=== PATIENT | male | born 1950 | race Caucasian/White ===

== ENCOUNTER 2019-11-21 07:28 | Emergency (ER) | payer OTHER ==
[~2019-11-21] VITALS: Ht 170.2 cm; Wt 81.7 kg
[~2019-11-21 07:28] MED LIST: ALLEGRA ALLERGY60 MG PO; OMEPRAZOLE20 MG PO
[2019-11-21] MEDS ORDERED: POTASSIUM CHLO10 MEQ PO (08:54)
[2019-11-21] MEDS ORDERED: PREDNISONE20 MG PO (08:54)
== END 2019-11-21 10:35 | disposition home or self-care (01) ==
LOC: ED 07:28
DX: T88.6XXA Anaphylactic reaction due to adverse effect of correct drug or medicament properly administered, initial encounter (principal); T47.1X5A Adverse effect of other antacids and anti-gastric-secretion drugs, initial encounter; T47.6X5A Adverse effect of antidiarrheal drugs, initial encounter; R19.7 Diarrhea, unspecified; E87.6 Hypokalemia; Z88.0 Allergy status to penicillin
CPT/HCPCS: 80053; 83690; 85025; 96361; 96374; 96375; 99284-25; J1200; J2930; J3480; J7040; Q0163

== ENCOUNTER 2022-04-18 13:51 | Emergency (ER) | payer OTHER ==
[~2022-04-18] VITALS: Ht 170.2 cm; Wt 86.2 kg
[~2022-04-18 13:51] MED LIST changes: +LOMOTIL TABLET1 EACH PO; +POTASSIUM CHLO10 MEQ PO; +PREDNISONE20 MG PO
[2022-04-18] MEDS ORDERED: METHYLPREDNISOLO4 M1 PO (16:31)
[2022-04-18] MEDS ORDERED: BENADRYL25 MG PO (16:31)
[2022-04-18] MEDS ORDERED: PEPCID20 MG PO (16:31)
== END 2022-04-18 16:41 | disposition home or self-care (01) ==
LOC: ED 13:51
DX: L50.0 Allergic urticaria (principal); T47.6X5A Adverse effect of antidiarrheal drugs, initial encounter; R19.7 Diarrhea, unspecified; J45.909 Unspecified asthma, uncomplicated; K21.9 Gastro-esophageal reflux disease without esophagitis; Z88.0 Allergy status to penicillin; Z88.8 Allergy status to other drugs, medicaments and biological substances
CPT/HCPCS: 36415; 80053; 85025; 96361; 96374; 96375; 99284-25; A9270; J2930; J7121

== ENCOUNTER 2024-08-04 14:28 | Observation (INO) | payer OTHER ==
[~2024-08-04] VITALS: Ht 170.2 cm; Wt 100.1 kg
[~2024-08-04 14:28] MED LIST changes: +BENADRYL25 MG PO; +LISINOPRIL20 MG PO; +METHYLPREDNISOLO4 M1 PO; +PEPCID20 MG PO; +SEVOFLURANE 250 ML BTL INH ONE; +TUMS300 MG PO
[2024-08-04] MEDS ORDERED: ondansetron HCL 4 MG/2 ML VIAL IV ONE (15:00)
[2024-08-04] MEDS ORDERED: NITROGLYCERIN 0.4 MG SUBL SL ONE (15:00)
[2024-08-04] MEDS ORDERED: GLUCAGON,HUMAN RECOMBINANT 1 MG/ML VIAL IV ONE (15:00)
[2024-08-04 15:38] LABS: BASOPHILS 0.7 % (0.2-1.2); EOSINOPHILS 5.4 % (0.8-7.0); HEMATOCRIT 38.8 % (40.1-51.0); HEMOGLOBIN 13.2 g/dL (13.7-17.5); LYMPHOCYTES 48.4 % (21.8-53.1); MCH 31.1 PG (25.7-32.2); MCV 91.5 fL (79.0-92.2); MONOCYTES 6.1 % (5.3-12.2); NEUTROPHILS 38.9 % (34.0-67.9); PLATELET COUNT 187 K/uL (163-337); RBC 4.24 M/uL (4.63-6.08)
[2024-08-04] MEDS ORDERED: SODIUM CHLORIDE 0.9% 1,000 ML IV PRN (15:45)
[2024-08-04 15:48] LABS: ALBUMIN 3.9 g/dL (3.4-5.0); ALBUMIN/GLOBULIN RATIO 1.11 (1.1-2.4); ANION GAP 11.5 (7-21); BILIRUBIN, TOTAL 0.7 mg/dL (0.2-1.0); BUN/CREATININE RATIO 8.2 (6.0-28.6); CALCIUM 9.5 mg/dL (8.5-10.1); CREATININE, SERUM 1.34 mg/dL (0.70-1.30); POTASSIUM 3.5 mmol/L (3.5-5.1); PROTEIN, TOTAL 7.4 g/dL (6.4-8.2)
[2024-08-04] MEDS ORDERED: SUCCINYLCHOLINE IN 0.9% NACL 200 MG/10 ML SYRINGE ONE (18:52)
[2024-08-04] MEDS ORDERED: ROCURONIUM BROMIDE 50 MG/5 ML SYR ONE (18:52)
[2024-08-04] MEDS ORDERED: LIDOCAINE HCL 2% 5 ML SDV ONE (18:52)
[2024-08-04] MEDS ORDERED: propofoL 200 MG/20 ML VIAL ONE (18:52)
[2024-08-04] MEDS ORDERED: SUGAMMADEX SODIUM 200 MG/2 ML ML ONE (19:36)
--- NOTE | 2024-08-04 19:48 | NUR ---
08/04/241947 Deann Garza 1940-PATIENT ARRIVED TO PACU ON 6L MASK NONAROUSABLE ORAL AIRWAY IN PLACE. SR. IVF INFUSING. HOB ELEVATED. PATIENT HAD ELEVATED BP PREOP AND REPORTED TO V BELT COVERER THAT HE WAS GONNA CALL PCP FOR NEW SCRIPT 1941-PATIENT AROUSING RAISING RIGHT HAND TO MOUTH ORAL AIRWAY REMOVED. ORIENTED TO PACU. 6L MASK RR EVEN 1946-PATIENT TALKING EYES CLOSED. RA 97% RR EVEN. DR. LORENZO AT BEDSIDE TALKING TO PATIENT.
[2024-08-04] MEDS ORDERED: PROTONIX40 MG PO (19:59)
[2024-08-04] MEDS ORDERED: CARAFATE1 GM PO (19:59)
[2024-08-04] MEDS ORDERED: NALOXONE HCL 0.4 MG SYR IV PRN (20:00)
[2024-08-04] MEDS ORDERED: ondansetron HCL 4 MG/2 ML VIAL IV PRN (20:00)
[2024-08-04] MEDS ORDERED: LACTATED RINGER'S 1,000 ML IV SCH (20:00)
[2024-08-04] MEDS ORDERED: PANTOPRAZOLE SODIUM 40 MG TABEC PO SCH (20:00)
--- NOTE | 2024-08-04 20:10 | NUR ---
pt ARRIVED TO THE FLOOR VIA STRETCHER. pt ABLE TO GET UP AND WALK TO THE BR AND PEE IN THE URINAL. VITAL SIGNS DONE. WATER REFRESHED. pt DENIES ANY OTHER NEEDS AT THIS TIME. CALL LIGHT WITHIN REACH.
[2024-08-04 20:18] VITALS: BP 155/62
--- NOTE | 2024-08-04 20:28 | NUR ---
2009- admitted to room 216 from PACU via stretcher. Pt alert and oriented, waslked to BRP, voided clear yellow urine, back to bed, tolerated well. Oriented to room. Dietary restrictions and suggestion given verbally to and pt, repeated several times, stated understanding.
[2024-08-04] MEDS ORDERED: SUCRALFATE 1 GM TAB PO SCH (21:00)
[2024-08-04 21:21] VITALS: BP 152/80
--- NOTE | 2024-08-04 21:30 | NUR ---
pt D/C INTRUCTIONS GIVEN. pt VERBALIZED UNDERSTANDING. pt DRESSED AND IV OUT. SCHEDULED MEDS ADMINISTERD. pt DENIES ANY OTHER NEEDS AT THIS TIME. CALL LIGHT WITHIN REACH.
--- NOTE | 2024-08-05 09:33 | OR ---
[facility] [address], [place] [address] Signed DATE OF OPERATION: 08/04/2024 SURGEON: Skyler Lorenzo MD PREOPERATIVE DIAGNOSIS: Food impaction in proximal esophagus (chicken). POSTOPERATIVE DIAGNOSES: 1. Food impaction in proximal esophagus (chicken). 2. High suspicion for eosinophilic esophagitis. 3. Proximal gastritis. PROCEDURE: 1. Esophagogastroduodenoscopy with biopsy. 2. Clearance of food impaction of esophagus. ANESTHESIA: General endotracheal; Terri Nathan CRNA INDICATIONS: This 73-year-old white man presented to the emergency room with sensation of food impaction in the proximal esophagus based on a chicken lunch he had earlier in the day. Several hours of observation in the ER, failed to allow for spontaneous clearance of the food impaction. The patient has seen CARINA Temple and his primary care provider. He underwent evaluation by Dr. Buchanan in the emergency room and despite efforts, recurrent evaluation with swallowing challenges, he appears still to have probable food impaction. On that basis, upper endoscopy is recommended. The risk of bleeding, infection, and perforation were reviewed with him. He understands and wished to proceed. FINDINGS: Immediately proximate to intubation, he said he thought the food impaction had passed. I discussed this with him. We proceeded with upper endoscopy just the same as he may have incomplete clearance and certainly the underlying etiology of his significant impaction warranted diagnosis. He was intubated without problem. I found to have within the esophagus was some residual chicken food, but absolutely not complete obstruction. He had no actual esophageal stricture, though he had stigmata of possibly eosinophilic esophagitis including some mild felinization in the mid esophagus. Marked inflammation was noted in the proximal esophagus where likely the largest amount of food Electronically Signed By: SKYLER LORENZO MD 08/05/24 0933 PATIENT NAME: RIOS BASS OPERATIVE REPORT DATE OF : 52 REPORT #: [id number] PHYSICIAN: SKYLER LORENZO MD PCP: CASSIDY TONY REPORT IS CONFIDENTIAL AND NOT TO BE RELEASED WITHOUT AUTHORIZATION [facility] [address], [place] [address] Signed impaction was noted. He had no evidence of Zenker's diverticulum. The stomach itself showed proximal gastritis and a poor flap valve. The pylorus and duodenum were normal. CLOtest was negative. DESCRIPTION OF PROCEDURE: The patient was brought to the endoscopy suite and in supine position, was given a general endotracheal anesthetic. A bite block was placed. An Olympus video upper endoscope was passed in the hypopharynx, ultimately passing into the esophagus proper. Scope was passed down the esophagus and bits of chicken meat was identified which was largely irrigated and suctioned free. In the distal most portion of the esophagus, some residual food was pushed into the stomach without problem. The stomach was then intubated fully. There was no sign of much residual food otherwise. The pylorus was normal. The scope was passed through it into the duodenum, which was normal. Biopsies were obtained to assess for celiac disease. The scope was then withdrawn. Biopsies taken the antrum for both NICOLETTE and pathologic testing. Notably, the antrum did have inflammatory changes. Retroflexed view showed some residual fluid in the proximal esophagus and a marginal flap valve. The proximal stomach was surprisingly inflamed. It was biopsied for both NICOLETTE and pathologic testing, and Scope was then withdrawn to the distal esophagus and there was no evidence of a dense stricture, but certainly chronic inflammatory change. There was no Joya's epithelium. Biopsies were obtained. Scope was withdrawn and midesophageal concentric rings in a subtle configuration were noted suggestive though not diagnostic of the eosinophilic esophagitis. Biopsies were additionally taken there. Further withdrawal to the proximal esophagus at about 11 cm or so definitely showed inflammatory changes likely the area of recent impaction. Biopsies were obtained also. The scope was removed and the patient was taken to the recovery room in good condition. CONCLUDING DIAGNOSIS: 1. High suspicion of eosinophilic esophagitis. Biopsies pending. Antral and proximal gastritis without ulceration. 2. No evidence of H. pylori. PLAN: We will initiate PPI medication, Prilosec 20 mg p.o. daily. We will see him back in the office in 4 weeks. If the biopsy should confirm the diagnosis of eosinophilic esophagitis, the steroid topical preparation will be added to his regimen. I believe he will be able to be discharged home tonight. His remains waiting for him. He will satisfy discharge criteria before discharge. Electronically Signed By: SKYLER LORENZO MD 08/05/24 0933 PATIENT NAME: RIOS BASS OPERATIVE REPORT DATE OF : 52 REPORT #: [id number] PHYSICIAN: SKYLER LORENZO MD PCP: CASSIDY TONY REPORT IS CONFIDENTIAL AND NOT TO BE RELEASED WITHOUT AUTHORIZATION [facility] [address] [place] [id number] Signed Skyler Lorenzo MD JM/MODL /[id number] cc: CARINA Rosenbaum Copies: CASSIDY TONY ~ Electronically Signed By: SKYLER LORENZO MD 08/05/24 0933 PATIENT NAME: RIOS BASS [employer] [employer] OPERATIVE REPORT DATE OF : 52 REPORT #: [id number] PHYSICIAN: SKYLER LORENZO MD PCP: CASSIDY TONY REPORT IS CONFIDENTIAL AND NOT TO BE RELEASED WITHOUT AUTHORIZATION
--- NOTE | 2024-08-05 09:33 | HP ---
[facility] [address] [place], [place] [address] Signed ADMISSION DATE: 08/04/2024 REASON FOR ADMISSION: Food impaction, esophagus. HISTORY OF PRESENT ILLNESS: This 73-year-old white man is having a check in lunch of some type at about 1 o'clock and after eating a fair amount of the meal, felt something had lodged in his esophagus. He notes that the obstruction site appears to be just below the clavicle. He presented to the emergency room. He was evaluated by Dr. Buchanan and a test of swallowing caused immediate regurgitation of water. He has been observed for 2 to 3 hours in the emergency room and things have not improved particularly. He still has episodic salivary secretions that are handled with suction. He has never had a food impaction in the past, though he is known to have gastroesophageal reflux, asthma, and hiatal hernia. He denies any family history of esophageal cancer. PAST MEDICAL HISTORY: Does include reconstruction of his right hand and left hand in childhood. ALLERGIES: He has allergies to penicillin and loperamide causing hives and anaphylaxis. SOCIAL HISTORY: He is accompanied by his . He is and lives in the [facility]. REVIEW OF SYSTEMS: He denies any actual chest pain. He has had no hematemesis or blood per rectum. PHYSICAL EXAMINATION: GENERAL: A cooperative white man, who is alert and oriented without sign of toxicity. VITAL SIGNS: Blood pressure is 152/61, respirations 18, pulse oximetry 98%, pulse 74. NECK: Trachea is midline. He has no crepitus. He has no hoarseness. He has episodic production of some saliva. GI: Abdominal exam shows a fair amount of abdominal distention and nontender. This may represent simple, poor muscle tone. It is not consistent with ascites so far as can be told. EXTREMITIES: Show deformity of the right thumb area with a large soft tissue reconstructive flap at the base of the thumb. Left hand has obvious surgery in the region of the thumb with good apposition of the thumb and 1st finger. Electronically Signed By: SKYLER LORENZO MD 08/05/24 0933 PATIENT NAME: RIOS BASS HISTORY AND PHYSICAL DATE OF : 52 REPORT #: [id number] PHYSICIAN: SKYLER LORENZO MD PCP: CASSIDY TONY REPORT IS CONFIDENTIAL AND NOT TO BE RELEASED WITHOUT AUTHORIZATION [facility] [address] [place] [id number] Signed ASSESSMENT: The patient has clinical evidence of esophageal food impaction, for which endoscopic evaluation and withdrawal or removal is recommended. Discussed with the patient and his the risk of bleeding, infection, perforation, failure to remove the foreign body, and other unforeseen complications. All due care will be maintained and providing this. So as to protect his airway, a general endotracheal anesthetic would be preferred and we discussed that as well, he agrees. PLAN: Upper endoscopy promptly to allow for extraction of food impaction of the esophagus. MD LOULOU Nunez/DOROTA /[id number] Copies: ~ Electronically Signed By: SKYLER LORENZO MD 08/05/24 0933 PATIENT NAME: RIOS BASS [place] HISTORY AND PHYSICAL DATE OF : 52 REPORT #: [id number] PHYSICIAN: SKYLER LORENZO MD PCP: CASSIDY TONY REPORT IS CONFIDENTIAL AND NOT TO BE RELEASED WITHOUT AUTHORIZATION
--- NOTE | 2024-08-10 09:01 | PATH ---
[facility] [address] [place], [place] [address] Signed SPECIMEN(S): A DUODENAL BIOPSY SPECIMEN(S): B ANTRUM BIOPSY SPECIMEN(S): C LOWER ESOPHAGEAL BIOPSY SPECIMEN(S): D MIDDLE ESOPHAGEAL BIOPSY SPECIMEN(S): E UPPER ESOPHAGEAL BIOPSY SPECIMEN SOURCE: A. DUODENAL BIOPSY B. ANTRUM BIOPSY C. LOWER ESOPHAGEAL BIOPSY D. MIDDLE ESOPHAGEAL BIOPSY E. UPPER ESOPHAGEAL BIOPSY CLINICAL HISTORY: "Illegible word ": Postop: Esophagitis, gastritis, hiatal hernia A-E) biopsy FINAL PATHOLOGIC DIAGNOSIS: A. Duodenal biopsy: - Benign small bowel mucosa consistent with duodenum - Negative for specific features of celiac sprue B. Antrum biopsy: - Mild active acute and chronic gastritis with a single microscopic focus of intestinal metaplasia; complete type - Negative for dysplasia - Positive for Helicobacter pylori organisms by immunohistochemical staining C. Lower esophageal biopsy: - Benign squamous mucosa with mild eosinophilia (no more than 2 eosinophils per high-power field) - Negative for glandular mucosa, intestinal metaplasia, or dysplasia D. Middle esophageal biopsy: - Fragments of benign squamous mucosa with mild eosinophilia (no more than 5 eosinophils per high-power field) - Negative for glandular mucosa, intestinal metaplasia, or dysplasia E. Upper esophageal biopsy: - Fragments of benign squamous mucosa with mild eosinophilia (no more than 6 eosinophils per high-power field) - Negative for glandular mucosa, intestinal metaplasia, or dysplasia BB PATIENT NAME: RIOS BASS PATHOLOGY DATE OF : 52 REPORT #: [id number] PHYSICIAN: OSWALD SHAFER PCP: CASSIDY TONY REPORT IS CONFIDENTIAL AND NOT TO BE RELEASED WITHOUT AUTHORIZATION [facility] [address] [place], [place] [address] Signed MICROSCOPIC EXAMINATION: Histologic sections of all submitted blocks are examined by light microscopy. These findings, together with the gross examination, support the pathologic diagnosis. GROSS DESCRIPTION: A. The specimen, labeled and designated "Vanelsberg, R, duodenal biopsy," is received in formalin and consists of three jaramillo soft tissue fragments, ranging from 0.2-0.4 cm. Entirely submitted in (A1). B. The specimen, labeled and designated "Vanelsberg, R, antrum biopsy," is received in formalin and consists of three jaramillo soft tissue fragments, ranging from 0.1-0.5 cm. Entirely submitted in (B1). C. The specimen, labeled and designated "Vanelsberg, R, lower esophageal biopsy," is received in formalin and consists of four jaramillo soft tissue fragments, ranging from 0.1-0.3 cm. Entirely submitted in (C1). D. The specimen, labeled and designated "Vanelsberg, R, middle esophageal biopsy," is received in formalin and consists of three jaramillo soft tissue fragments, ranging from 0.3-0.5 cm. Entirely submitted in (D1). E. The specimen, labeled and designated "Vanelsberg, R, upper esophageal biopsy," is received in formalin and consists of three jaramillo soft tissue fragments, ranging from 0.2-0.3 cm. Entirely submitted in (E1). AB (under the direct supervision of a pathologist) The Gross Description was prepared using a voice recognition system. The report was reviewed for accuracy; however, sound-alike word errors, addition and/or deletions may occur. If there is any question about this report, please contact Client Services. ADDITIONAL NOTES: Immunohistochemical and/or in situ hybridization studies if performed in this case included appropriate positive controls that reacted as expected. This test was developed and its performance characteristics determined by [facility]. It has not been cleared or approved by the U.S. Food and Drug Administration. The FDA has determined that such clearance or approval is not necessary. This test is used for clinical purposes. It should not be regarded as investigational or for research. [facility] is certified under the Clinical Laboratory Improvement Amendments of 1988 (CLIA) as qualified to perform high complexity clinical PATIENT NAME: RIOS BASS PATHOLOGY DATE OF : 52 REPORT #: [id number] PHYSICIAN: OSWALD SHAFER PCP: CASSIDY TONY REPORT IS CONFIDENTIAL AND NOT TO BE RELEASED WITHOUT AUTHORIZATION [facility] [address] [place], [place] [address] Signed laboratory testing. PERFORMING LABORATORY: Technical component was performed by [facility], [address] [place] [id number] (CLIA# [id number]). Professional interpretation was performed by [facility] - [address] [place] [id number] (CLIA#: [id number]). Diagnostician: Harinder Duncan MD Pathologist Electronically Signed 08/10/2024 Copies: ~ PATIENT NAME: NERYALEXANDERRIOS LEE PATHOLOGY DATE OF : 52 REPORT #: [id number] PHYSICIAN: OSWALD PATHOLOGY PCP: CASSIDY TONY REPORT IS CONFIDENTIAL AND NOT TO BE RELEASED WITHOUT AUTHORIZATION
== END 2024-08-04 21:30 | disposition home or self-care (01) ==
LOC: ED 14:28 → MS 14:29
PROVIDERS: Emergency Medicine; ADMIT Surgery; ATTEND Surgery
PROC: 0DB68ZX Excision of Stomach, Via Natural or Artificial Opening Endoscopic, Diagnostic (ICD-10-PCS; 2024-08-04)
PROC: 0DB18ZX Excision of Upper Esophagus, Via Natural or Artificial Opening Endoscopic, Diagnostic (ICD-10-PCS; 2024-08-04)
PROC: 0DB28ZX Excision of Middle Esophagus, Via Natural or Artificial Opening Endoscopic, Diagnostic (ICD-10-PCS; 2024-08-04)
PROC: 0DB38ZX Excision of Lower Esophagus, Via Natural or Artificial Opening Endoscopic, Diagnostic (ICD-10-PCS; 2024-08-04)
PROC: 0DB98ZX Excision of Duodenum, Via Natural or Artificial Opening Endoscopic, Diagnostic (ICD-10-PCS; principal; 2024-08-04 18:00)
DX: K29.50 Unspecified chronic gastritis without bleeding (principal); B96.81 Helicobacter pylori [H. pylori] as the cause of diseases classified elsewhere; D72.10 Eosinophilia, unspecified; R09.A2 Foreign body sensation, throat; J45.909 Unspecified asthma, uncomplicated; K21.9 Gastro-esophageal reflux disease without esophagitis; Z88.0 Allergy status to penicillin; Z88.8 Allergy status to other drugs, medicaments and biological substances
CPT/HCPCS: 00813; 36415; 80053; 85025; 96374; 96375; 99284-25; A9270; J0330; J1610; J2003; J2405; J2704; J3490; J7030